=== PATIENT | male | born 1945 | race Caucasian/White ===

== ENCOUNTER 2016-09-13 07:15 | Emergency (ER) | payer MEDICARE, OTHER ==
[2016-09-13] MEDS ORDERED: KETOROLAC 30 MG/ML VIAL ONE (07:51)
== END 2016-09-13 09:18 | disposition home or self-care (01) ==
LOC: ER 07:15
DX: M10.9 Gout, unspecified (principal); M13.122 Monoarthritis, not elsewhere classified, left elbow; E11.9 Type 2 diabetes mellitus without complications; I10 Essential (primary) hypertension; I25.2 Old myocardial infarction; Z87.891 Personal history of nicotine dependence
CPT/HCPCS: 36415; 73080; 80053; 84550; 85025; 85652; 86141; 96374; 99283; J1885

== ENCOUNTER 2016-09-18 14:10 | Emergency (ER) | payer MEDICARE, OTHER ==
[2016-09-18] MEDS ORDERED: OPTIRAY 350 100 ML VIAL HMH IV ONE (14:11)
[2016-09-18] MEDS ORDERED: DILAUDID 1 MG/ML AMP ONE (17:54)
== END 2016-09-18 21:03 | disposition home or self-care (01) ==
LOC: ER 14:10
DX: R60.9 Edema, unspecified (principal); M79.602 Pain in left arm; I10 Essential (primary) hypertension; E11.9 Type 2 diabetes mellitus without complications; I25.2 Old myocardial infarction; Z95.1 Presence of aortocoronary bypass graft; Z95.5 Presence of coronary angioplasty implant and graft; F17.200 Nicotine dependence, unspecified, uncomplicated; Z79.82 Long term (current) use of aspirin; Z79.84 Long term (current) use of oral hypoglycemic drugs; Z79.02 Long term (current) use of antithrombotics/antiplatelets
CPT/HCPCS: 71260; 93005; 93971; 96372; 99284; J1170; Q9967